=== PATIENT | male | born 1950 | race African-American/Black ===

== ENCOUNTER 2019-02-22 10:36 | Day surgery (SDC) | payer OTHER ==
[~2019-02-22 10:36] MED LIST: KETOROLAC TROMETHAMINE 0.45% 4 DROP/0.4 ML DROPERETTE OD PRN
[2019-02-22] MEDS: TETRACAINE HCL 0.5% OPH SOLN 4 ML OD PRN ×4 (11:02→11:23)
[2019-02-22] MEDS: TROPICAMIDE 1% OPH SOLN 15 ML OD PRN ×3 (11:02→11:22)
[2019-02-22] MEDS: BESIFLOXACIN HCL 0.6% OPH SUSP 5 ML BOTTLE OD PRN ×4 (11:03→11:42)
[2019-02-22] MEDS: CYCLOPENTOLATE 0.2%/PHENYLEPHRINE 1% OPH SOLN 2 ML OD PRN ×3 (11:03→11:22)
[2019-02-22] MEDS ORDERED: ONDANSETRON HCL INJ/PF 4 MG/2 ML SDV ONE (11:13)
[2019-02-22] MEDS ORDERED: MIDAZOLAM 2 MG/2 ML INJ ONE (11:13)
[2019-02-22] MEDS ORDERED: FENTANYL CITRATE INJ/PF 100 MCG/2 ML AMPUL ONE (11:13)
[2019-02-22] MEDS: EPINEPHRINE INJ/PF 1 MG/1 ML AMPULE ONE ×2 (11:33)
[2019-02-22] MEDS: CHONDR SU A NA/HYALUR INTRAOC KIT (SURGICARE) ONE ×2 (11:33)
[2019-02-22] MEDS: LIDOCAINE 1% INJ-PF (10 MG/ML) 30 ML SDV ONE ×2 (11:33)
[2019-02-22] MEDS: DORZOLAMIDE HCL 2%/TIMOLOL MALEAT 0.5% OPH SOLN 10 ML OD PRN ×2 (11:42)
[2019-02-22] MEDS: TOBRAMYCIN SULFATE/DEXAMETH OPH OINTMENT 3.5 GM ONE ×2 (11:42)
== END 2019-02-22 12:17 | disposition home or self-care (01) ==
LOC: SC 10:36
PROVIDERS: ATTEND Ophthalmology
DX: H25.11 Age-related nuclear cataract, right eye (principal); E11.9 Type 2 diabetes mellitus without complications; I10 Essential (primary) hypertension; Z79.82 Long term (current) use of aspirin; Z79.899 Other long term (current) drug therapy; Z87.891 Personal history of nicotine dependence
CPT/HCPCS: 66984; 00142; V2632; J2250; J3490 ×4; J0171; J3010; J2405; 142

== ENCOUNTER 2019-03-08 10:22 | Day surgery (SDC) | payer OTHER ==
[~2019-03-08 10:22] MED LIST changes: +CHONDR SU A NA/HYALUR INTRAOC KIT (SURGICARE) ONE; +EPINEPHRINE INJ/PF 1 MG/1 ML AMPULE ONE; -KETOROLAC TROMETHAMINE 0.45% 4 DROP/0.4 ML DROPERETTE OD PRN; +KETOROLAC TROMETHAMINE 0.45% 4 DROP/0.4 ML DROPERETTE OS PRN; +LIDOCAINE 1% INJ-PF (10 MG/ML) 30 ML SDV ONE
[2019-03-08] MEDS: CYCLOPENTOLATE 0.2%/PHENYLEPHRINE 1% OPH SOLN 2 ML OS PRN ×3 (10:36→11:00)
[2019-03-08] MEDS: TROPICAMIDE 1% OPH SOLN 15 ML OS PRN ×3 (10:36→11:00)
[2019-03-08] MEDS: TETRACAINE HCL 0.5% OPH SOLN 4 ML OS PRN ×3 (10:36→11:01)
[2019-03-08] MEDS: BESIFLOXACIN HCL 0.6% OPH SUSP 5 ML BOTTLE OS PRN ×4 (10:36→11:22)
[2019-03-08] MEDS ORDERED: MIDAZOLAM 2 MG/2 ML INJ ONE (10:49)
[2019-03-08] MEDS ORDERED: FENTANYL CITRATE INJ/PF 100 MCG/2 ML AMPUL ONE (10:49)
[2019-03-08] MEDS: DORZOLAMIDE HCL 2%/TIMOLOL MALEAT 0.5% OPH SOLN 10 ML OS PRN ×2 (11:22)
[2019-03-08] MEDS: TOBRAMYCIN SULFATE/DEXAMETH OPH OINTMENT 3.5 GM ONE ×2 (11:22)
== END 2019-03-08 12:00 | disposition home or self-care (01) ==
LOC: SC 10:22
PROVIDERS: ATTEND Ophthalmology
DX: H25.12 Age-related nuclear cataract, left eye (principal); Z79.82 Long term (current) use of aspirin; Z79.899 Other long term (current) drug therapy; Z87.891 Personal history of nicotine dependence; E11.9 Type 2 diabetes mellitus without complications; I10 Essential (primary) hypertension; Z98.41 Cataract extraction status, right eye
CPT/HCPCS: 66984; 00142; V2632; J2250; J3490 ×4; J0171; J3010; 142